=== PATIENT | female | born 1990 | race Caucasian/White ===

== ENCOUNTER 2020-12-24 09:16 | Inpatient (IN) ==
[~2020-12-24 09:16] MED LIST: Buffered Lidocaine 1% SYRIN 1 ml INTRADERM ONE; Lactated Ringers 1000 ml BAG 1,000 ML IV ONE; Lactated Ringers 1000 ml BAG 1,000 ML IV SCH; Sodium Citrate/Citric Acid LIQ 15 ML UDC ONE; Sodium Citrate/Citric Acid LIQ 15 ML UDC PO ONE; ceFAZolin 2 GM PREMIX 2 GM/50 ML BAG ONE; ceFOXitin 2 GM IVPREMIX 2 GM/50 ML BAG IVPB ONE
[2020-12-24 10:30] LABS: Urine Benzodiazepine Screen None Detected (None Detect); Urine Cannabinoids Screen None Detected (None Detect); Urine Opiates Screen None Detected (None Detect)
[2020-12-24] MEDS ORDERED: fentaNYL 100 mcg/2 ml 50 MCG/ML VIAL ONE (10:52)
[2020-12-24] MEDS ORDERED: Morphine PF AMP (0.5MG/ML) 5 MG/10 ML AMP ONE (10:52)
[2020-12-24] MEDS ORDERED: Oxytocin 10 UNITS/ML 1 ML VIAL ONE (11:22)
[2020-12-24] MEDS ORDERED: Ondansetron 4 mg VIAL 2 MG/ML 2 ml VIAL ONE (11:22)
[2020-12-24] MEDS ORDERED: Dexamethasone IV 4 MG/ML VIAL 1 ml VIAL ONE (11:22)
[2020-12-24] MEDS ORDERED: Phenylephrine 40 mcg/mL 10mL (400mcg) SYRINGE ONE (11:27)
[2020-12-24] MEDS ORDERED: Naloxone 0.4 mg VIAL 0.4 mg/ml 1 ml VIAL IV PRN ×2 (11:40→11:42)
[2020-12-24] MEDS ORDERED: fentaNYL 100 mcg/2 ml 50 MCG/ML VIAL IV PRN (11:40)
[2020-12-24] MEDS ORDERED: Prochlorperazine 5 mg/ml 2 ml VIAL (10 mg) IV PRN (11:40)
[2020-12-24] MEDS ORDERED: Acetaminophen IV 1 GM/100ML 1,000 MG/100 ML VIAL IVPB ONE (11:40)
[2020-12-24] MEDS ORDERED: Ondansetron 4 mg VIAL 2 MG/ML 2 ml VIAL IV PRN (11:42)
[2020-12-24] MEDS ORDERED: DiMENhydriNATE IV 50 mg/ml 1 ml VIAL IV PUSH PRN (11:42)
[2020-12-24] MEDS ORDERED: diPHENhydraMINE IV 50 MG/ML 1 ml VIAL (BENADRYL) IV PRN (11:42)
[2020-12-24] MEDS ORDERED: Glycerin ADULT 2.4 gm SUPP PR PRN (12:04)
[2020-12-24] MEDS ORDERED: Witch Hazel PAD JAR TOPICAL PRN (12:04)
[2020-12-24] MEDS ORDERED: Dibucaine 1% OINT 28.35 GM TUBE PR PRN (12:04)
[2020-12-24] MEDS ORDERED: Lactated Ringers 1000 ml BAG 1,000 ML IV SCH (13:00)
[2020-12-25 06:42] LABS: ABS Lymphocytes 1.3 10^3/ul (1.0-4.8); ABS Monocytes 0.8 10^3/ul (0-0.8); ABS Neutrophils 10.1 10^3/ul (1.5-7.7); Eosinophil % 0.1 %; Hematocrit 31 % (35-47); Hemoglobin 10.2 g/dL (12.0-16.0); Lymphocyte % 10.4 %; Mean Corpuscular HGB Conc 33 g/dL (31-36); Mean Corpuscular Hemoglobin 30 pg (27-31); Mean Corpuscular Volume 91 fL (80-97); Nucleated Red Blood Cells % 0.1; Platelet Count 186 10^3/uL (150-450); Red Cell Distribution Width 21 % (10-15); White Blood Count 12.1 10^3/uL (3.5-10.8)
[2020-12-26 07:43] VITALS: BP 91/54
== END 2020-12-26 14:38 | disposition home or self-care (01) | DRG 540 ==
LOC: MCHOB 09:16
PROVIDERS: ADMIT Obstetrics & Gynecology; ATTEND Obstetrics & Gynecology